=== PATIENT | female | born 1990 | race Caucasian/White ===

== ENCOUNTER 2024-02-19 04:24 | Inpatient (IN) | payer OTHER, SELFPAY ==
[2024-02-19 04:55] VITALS: BMI 24.7
[2024-02-19 04:58] LABS: % Basophils 0.3 % (0-2); % Eosinophils 0.6 % (0-6); % Immature Granulocytes 0.9 % (0-0.5); % Lymphocytes 15.8 % (20.5-51.1); % Monocytes 5.8 % (1.7-9.3); % Neutrophils 76.6 % (42.2-75.2); Absolute Eosinophils 0.1 10^3/uL (0-0.7); Absolute Immature Granulocytes 0.1 10^3/uL (0-0.05); Absolute Lymphocytes 2.2 10^3/uL (1.2-3.4); Absolute Monocytes 0.8 10^3/uL (0.1-0.6); Absolute Neutrophils 10.7 10^3/uL (1.4-6.5); Hematocrit 40.1 % (37.0-47.0); Hemoglobin 13.6 g/dL (12.0-16.0); Mean Corp Hgb Conc. 33.9 g/dL (33.0-37.0); Mean Corpuscular Hgb 30.5 pg (27.0-31.0); Mean Corpuscular Volume 89.9 fL (81.0-99.0); Mean Platelet Volume 11.5 fL (7.4-10.4); Nucleated Red Blood Cells % 0 %; Platelet Count 320 10^3/uL (130-400); Red Blood Cell Count 4.46 10^6/uL (4.20-5.40); Red Cell Dist. Width 12.9 % (11.5-14.5); White Blood Cell Count 13.9 10^3/uL (4.8-10.8)
[2024-02-19] MEDS: SUBLIMAZE 100 MCG EPIDURAL (05:14)
[2024-02-19] MEDS: FENTANYL/BUPIVACAINE 100 EPIDURAL (05:14)
[2024-02-19 05:30] VITALS: BP 128/87
[2024-02-19] MEDS: PITOCIN 30 UNITS/NSS 500 ML IV (06:45)
[2024-02-19] MEDS: XYLOCAINE-MPF 1% VIAL 30 ML INFIL (06:45)
[2024-02-19] MEDS: LR 1000 IV (06:45)
[2024-02-19] MEDS: MOTRIN 600 MG PO ×2 (09:35→23:15)
[2024-02-19] MEDS: TYLENOL 650 MG PO ×2 (18:24→23:15)
[2024-02-20 04:31] LABS: Hematocrit 33.5 % (37.0-47.0); Hemoglobin 11.7 g/dL (12.0-16.0)
[2024-02-20] MEDS: MOTRIN 600 MG PO ×2 (06:24→12:42)
[2024-02-20] MEDS: TYLENOL 650 MG PO ×2 (06:24→12:43)
[2024-02-23 11:12] LABS: Syphilis/T. pallidum Ab Reflex Negative (Negative)
== END 2024-02-20 15:15 | disposition home or self-care (01) | DRG 807 ==
LOC: LDRP 04:24
PROVIDERS: ADMITTING PHYSICIAN Obstetrics & Gynecology; FAMILY PHYSICIAN Family Medicine
PROC: 10E0XZZ Delivery of Products of Conception, External Approach (ICD-10-PCS; 2024-02-19)
PROC: 0HQ9XZZ Repair Perineum Skin, External Approach (ICD-10-PCS; 2024-02-19)
PROC: 6A550ZT Pheresis of Cord Blood Stem Cells, Single (ICD-10-PCS; 2024-02-19)
DX: O42.02 Full-term premature rupture of membranes, onset of labor within 24 hours of rupture (principal); Z37.0 Single live birth; Z3A.38 38 weeks gestation of pregnancy; O32.2XX0 Maternal care for transverse and oblique lie, not applicable or unspecified; O70.0 First degree perineal laceration during delivery; Z91.040 Latex allergy status; G43.909 Migraine, unspecified, not intractable, without status migrainosus
CPT/HCPCS: 36415; 85014; 85018; 85025; 86780; 86850; 86900; 86901